=== PATIENT | female | born 1945 | race Caucasian/White ===

== ENCOUNTER → 2020-10-05 10:22 | Outpatient (CLI) | payer MEDICARE, OTHER, SELFPAY ==
--- NOTE | 2020-10-05 | DI.US.S_ITS ---
PROCEDURE: US THYROID INDICATIONS: LUMP IN THROAT; SUBCLINICAL HYPOTHYROIDISM TECHNIQUE: Real-time scanning was performed of the thyroid gland, with image documentation. COMPARISON: None. FINDINGS: Right: Thyroid lobe measures 1.2 x 1.4 x 3.2 cm, and is homogeneous in echotexture. Left: Thyroid lobe measures 1.2 x 1.4 x 3.1 cm, and is homogenous in echotexture. Isthmus: 2.8 Nodule number: 1 Location: Inferior half of left thyroid lobe Size: 1.2 x 1.2 x 1.6 cm. Composition: Solid Echogenicity: Isoechoic Shape: wider than tall. Margins: Smooth Echogenic foci: Absent Total points: 3 ACR TI-RADS category: TR 3 Nodule number: 2 Location: Superior medial 3rd of left thyroid lobe Size: 4 x 4 x 4 mm. Composition: Solid Echogenicity: Hypoechoic Shape: wider than tall. Margins: Smooth Echogenic foci: Absent Total points: 4 ACR TI-RADS category: TR 4 Nodule number: 3 Location: Superior lateral 3rd of right thyroid lobe Size: 4 x 4 x 6 mm Composition: Solid Echogenicity: Hypoechoic Shape: wider than tall. Margins: Smoothly Echogenic foci: None Total points: 4 ACR TI-RADS category: TR 4 IMPRESSION: The average diameter of the 3 nodules is relatively small for each, and does not reach the size criteria for recommendation of biopsy or follow-up of any of these 3 nodules a. Continued clinical follow-up is recommended and if the nodules increase in size additional follow-up ultrasound would be recommended. Clinical follow-up at yearly intervals is recommended. ACR TI-RADS definitions and recommendations: TI-RADS 1 (benign): 0 points. FNA not needed. TI-RADS 2 (not suspicious): 2 points. FNA not needed. TI-RADS 3 (mildly suspicious): 3 points. * FNA if 2.5 cm or larger, follow up if 1.5 cm or larger (at 1, 3, and 5 years). TI-RADS 4 (moderately suspicious): 4-6 points. * FNA if 1.5 cm or larger, follow up if 1 cm or larger (at 1, 2, 3, and 5 years). TI-RADS 5 (highly suspicious): 7 points or more. * FNA if 1 cm or larger, follow up if 0.5 cm or larger (every year for 5 years). Dictated by: Jason Rene M.D. on 10/05/2020 at 15:50 Approved by: Jason Rene M.D. on 10/05/2020 at 16:13
--- NOTE | 2020-10-05 | DI.RAD.S_ITS ---
PROCEDURE: FL BARIUM SWALLOW INDICATIONS: Snoring COMPARISON: None. FINDINGS: Function: There is normal esophageal peristalsis. There was both mild spontaneous and elicited gastroesophageal reflux, associated with a moderate sized open rolling hiatal hernia with approximately 1/3 of the gastric substance extending cephalad into the lower chest at time of maximum visualization. Morphology: Air-contrast images demonstrate normal mucosal morphology. Single contrast views show no esophageal strictures, extrinsic mass effects, or diverticula. Limited images of the stomach demonstrate normal appearance. IMPRESSION: Moderate-sized rolling hiatal hernia with approximately 1/3 of the gastric substance extending cephalad into the lower chest behind the heart at time of greatest extent of herniation. There is both spontaneous and elicited associated gastroesophageal reflux. No gastric erosion or stricture found. No esophageal mass or inflammation identified. Dictated by: Jason Rene M.D. on 10/05/2020 at 12:58 Approved by: Jason Rene M.D. on 10/05/2020 at 13:00
== END ==
PROVIDERS: Referring Provider Physician Assistant; Visit Provider Physician Assistant
DX: R09.89 Other specified symptoms and signs involving the circulatory and respiratory systems (principal); R06.83 Snoring; R79.89 Other specified abnormal findings of blood chemistry; E03.9 Hypothyroidism, unspecified; E04.2 Nontoxic multinodular goiter; K44.9 Diaphragmatic hernia without obstruction or gangrene
CPT/HCPCS: 74220; 76536